=== PATIENT | female | born 2000 | race African-American/Black ===

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

== ENCOUNTER 2023-08-01 10:53 | Outpatient (CLI) | payer BC, SELFPAY ==
[2023-08-02 12:08] LABS: DHEA-Sulfate 237 mcg/dL (44-286); FSH 7.4 mIU/mL; Progesterone 0.5 ng/mL
[2023-08-03 23:39] LABS: Testosterone Total 55 ng/dL (2-45)
[2023-08-04 19:24] LABS: Anti Mullerian Hormone,Female 21.45 ng/mL (1.02-14.63)
[2023-08-09 23:53] LABS: Estradiol, Ultrasensitive 79 pg/mL
== END 2023-08-01 10:54 | disposition home or self-care (01) ==
LOC: ANHLAB 10:54
PROVIDERS: Visit Provider Student in an Organized Health Care Education/Training Program
DX: N91.5 Oligomenorrhea, unspecified (principal)
CPT/HCPCS: 36415; 82627; 82670; 83001; 84144; 84403; 84443

== ENCOUNTER 2023-10-19 12:02 | Outpatient (CLI) | payer BC, SELFPAY ==
[2023-10-19 12:21] LABS: Hematocrit 29.4 % (37.0-47.0); Hemoglobin 9.1 g/dL (12.0-15.0)
== END 2023-10-19 12:03 | disposition home or self-care (01) ==
LOC: ANHLAB 12:04
PROVIDERS: Visit Provider Student in an Organized Health Care Education/Training Program
DX: D64.9 Anemia, unspecified (principal)
CPT/HCPCS: 36415; 85014; 85018

== ENCOUNTER 2023-10-29 10:36 | Outpatient (CLI) | payer BC, SELFPAY | END 2023-10-29 10:37 | disposition home or self-care (01) | LOC: ANHGOSHLAB 10:37 | PROVIDERS: Visit Provider Student in an Organized Health Care Education/Training Program | DX: Z20.2 Contact with and (suspected) exposure to infections with a predominantly sexual mode of transmission (principal) | CPT/HCPCS: 36415; 86695; 86696 ==

== ENCOUNTER 2023-12-05 15:26 | Outpatient (CLI) | payer BC, SELFPAY ==
[2023-12-05 16:15] LABS: Beta HCG Quantitative < 2.39 mIU/ML
== END 2023-12-05 15:27 | disposition home or self-care (01) ==
LOC: ANHLAB 15:27
PROVIDERS: Visit Provider Student in an Organized Health Care Education/Training Program
DX: Z30.9 Encounter for contraceptive management, unspecified (principal)
CPT/HCPCS: 36415; 84702

== ENCOUNTER 2024-06-25 11:19 | Outpatient (CLI) | payer BC, SELFPAY ==
--- OUTSIDE RECORDS SUMMARY | 2024-06-25 12:04 | XMS_ITS | Clinical Summary ---
Author Organization [facility] Address [address] [place] [address] Care Team Providers Care Certified Rehabilitation Counselor Name Role Phone Unavailable Primary Care Provider Unavailabl e Source Comments [facility],non-owned Affiliates and Associated Physician Practices is amultiple site organization consisting of ambulatory clinics and hospital sitesin [place], [place], [place] and [place]. This disclosure is being madepursuant to the Care Everywhere program and may not contain all information available regarding this patient. Last updated 17.[employer] [facility] Allergies No known active allergies Medications * Be aware that medications may not be up to date on this document. Alwaysverify current medications with the patient. 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 Gender Identity Not on file Sexual Orientation Not on file Plan of Treatment Health Maintenance Due Date Last Done Comments PAP SMEAR 2001 HIV SCREENING 2016 HPV VACCINE (1 - 3-dose series) 2016 CHLAMYDIA/GONORRHEA SCREENING 2017 MENINGOCOCCAL (Group B) VACC INE SHARED DECISION-MAKING (1 of 2 - Standard) 2017 HEPATITIS C SCREENING 10/20/2019 DTAP/TDAP/TD VACCINES (1 - Tdap) 2020 HEPATITIS B VACCINE (1 of 3 - 19+ 3-dose series) 2020 COVID-19 VACCINE (1 - 2023-2 5 season) 2023 DEPRESSION SCREENING 02/20/2024 INFLUENZA VACCINE (Season Ended) 2024 ZOSTER VACCINE (1 of 2) 10/25/2051 HIB VACCINE Aged Out No longer eligi ble based on patient's age to complete this topic MENINGOCOCCAL GROUPS A/C/Y/W VACCINE Aged Out No longer eligible b ased on patient's age to complete this topic PNEUMOCOCCAL VACCINE Aged Out No long er eligible based on patient's age to complete this topic
--- OUTSIDE RECORDS SUMMARY | 2024-06-25 12:04 | XMS_ITS | Clinical Summary ---
Author Organization [facility] Address [address] [place] [address] Phone Care Team Providers Care Supervisor Shed Workers Name Role Phone Kumar Whitt MD Primary Care Provider Allergies No known active allergies Medications ondansetron (ZOFRAN) 4 MG Tablet Take 1-2 Tabs by mouth every 8 hours as needed for Nausea - 1st line. 10 Tab 12/31/2019 Active Social History Tobacco Use Types Packs/Day Years Used Date Smoking Tobacco: Never Smokeless Tobacco: Never Alcohol Use Standard Drinks/Week Comments Never 0 (1 standard drink = 0.6 oz pur e alcohol) AUDIT-C Answer Date Recorded Q1: How often do you have a drink containing alc ohol? Never 12/31/2019 Average Number of Drinks Not on file 020 Frequency of Binge Drinking Not on file 12/20 Comments No Sex and Gender Information Value Date Recorded Sex Assigned at Not on file Legal Sex Female 6:06 PM REHABILITATION AIDE/SCHEDULER Gender Identity Not on file Sexual Orientation Not on file Last Filed Vital Signs Vital Sign Reading Time Taken Comments Blood Pressure 113/56 12/31/2019 8:08 PM REHABILITATION AIDE/SCHEDULER Pulse 90 12/31/2019 8:08 PM REHABILITATION AIDE/SCHEDULER Temperature 37.1 C (98.7 F) 12/31/2019 6:09 PM REHABILITATION AIDE/SCHEDULER Respiratory Rate 18 12/31/2019 6:09 PM REHABILITATION AIDE/SCHEDULER Oxygen Saturation 99% 12/31/2019 8:08 PM REHABILITATION AIDE/SCHEDULER Inhaled Oxygen Concentration - - Weight 53.5 kg (118 lb) 12/31/2019 6:09 PM REHABILITATION AIDE/SCHEDULER Height 149.9 cm (4' 11 ) 12/31/2019 6:09 PM REHABILITATION AIDE/SCHEDULER Body Mass Index 23.83 12/31/2019 6:09 PM REHABILITATION AIDE/SCHEDULER Plan of Treatment Health Maintenance Due Date Last Done Comments Hepatitis C Virus (HCV) Screening 2001 Meningococcal B Immunization (2 of 2 - Bexsero SCDM 2-dose series) 05/25/2020 11/25/2019 Pap Smear 2022 Influenza Immunization (#1) 10/21/202307/2019, 01/16/2018, 03/30/2017, Additional history exists SARS-COV-2 Immunization ( season) 2023 03/05/2021, 09/22/2020 Respiratory Syncytial Virus (RSV) Immunization (Adult) (1 - 1-dose 75+ series) 2076 Hepatitis B Immunization Completed 003, 2001, 2001 Pneumococcal Immunization Combined Aged Out 01/29/2003, 08/05/2002, 03/18/2002, Additional history exists No longer eligible based on patient's age to complete this topic Hepatitis A Immunization Discontinued 09/22/2004, 11/19 Measles Mumps Rubella (MMR) Immunization Discontinued 06/20/2006, 11/06/2002 Polio (IPV) Immunization Discontinued 007, 11/06/2002, 03/18/2002, Additional history exists Varicella Immunization Discontinued 06/20/2006, 2002 DTaP/Tdap/Td Immunization Discontinued 2012, 06/20/2006, 01/29/2003, Additional history exists TdaP Immunization Completed 01/14/2013 Human Papillomavirus (HPV) Immunization Completed 09/23/2013, 03/18/2013, 01/14/2013 Meningococcal Immunization (ACWY) Completed 01/16/2018, 01/14/2013 Rotavirus Immunization Aged Out No lo nger eligible based on patient's age to complete this topic Insurance MEDICAID [employer] Care Teams Supervisor Shed Workers Relationship Specialty Start Date End Date Kumar Whitt MD PCP - General Obstetrics & Gynecology 12/31/19
[2024-06-25 13:21] LABS: HIV 1/2 Ab P24 Ag Result Negative (Negative)
[2024-06-25 13:27] LABS: Syphilis IgG/IgM Antibody Negative (Negative)
[2024-06-25 13:31] LABS: Hepatitis B Surface Antigen Negative (Negative)
[2024-06-25 13:37] LABS: HAV RESULT Negative (Negative); Hepatitis B Core IgM Result Negative (Negative)
[2024-06-25 13:49] LABS: Hepatitis C Virus Antibody Negative (Negative)
== END 2024-06-25 11:20 | disposition home or self-care (01) ==
PROVIDERS: Visit Provider Student in an Organized Health Care Education/Training Program
DX: Z20.2 Contact with and (suspected) exposure to infections with a predominantly sexual mode of transmission (principal)
CPT/HCPCS: 36415; 80074; 86593; 86695; 86696; 86703; G0432

== ENCOUNTER 2024-09-05 10:04 | Outpatient (CLI) | payer BC, SELFPAY ==
--- OUTSIDE RECORDS SUMMARY | 2024-09-05 10:06 | XMS_ITS | Clinical Summary ---
Author Organization [facility] Address [address] [place] [address] Phone Care Team Providers Care Medical Accounting Clerk Name Role Phone Kumar Whitt MD Primary [...] on file Legal Sex Female 6:06 PM DIGITAL COMPOSER Gender Identity Not on file Sexual Orientation Not on file Last Filed Vital Signs Vital Sign Reading Time Taken Comments Blood Pressure 113/56 12/31/2019 8:08 PM DIGITAL COMPOSER Pulse 90 12/31/2019 8:08 PM DIGITAL COMPOSER Temperature 37.1 C (98.7 F) 12/31/2019 6:09 PM DIGITAL COMPOSER Respiratory Rate 18 12/31/2019 6:09 PM DIGITAL COMPOSER Oxygen Saturation 99% 12/31/2019 8:08 PM DIGITAL COMPOSER Inhaled Oxygen Concentration - - Weight 53.5 kg (118 lb) 12/31/2019 6:09 PM DIGITAL COMPOSER Height 149.9 cm (4' 11) 12/31/2019 6:09 PM DIGITAL COMPOSER Body Mass Index 23.83 12/31/2019 6:09 PM DIGITAL COMPOSER Plan of Treatment Health Maintenance Due Date [...] Insurance [employer]ID [employer] Care Teams Medical Accounting Clerk Relationship Specialty Start Date End Date Kumar Whitt MD PCP - General Obstetrics & Gynecology 12/31/19
--- OUTSIDE RECORDS SUMMARY | 2024-09-05 10:06 | XMS_ITS | Referral Summary ---
Author Organization [facility] Address [address] [place] [address] Care Team Providers Care Plastic Surgery Assistant Name Role Phone No, Physician Primary Care Provider [phone] Encounters Date Type Department Care Team Description 08/29/2024 Results Follow-Up [facility] [address] [place] [id number] Rubio Xiao RN Iron profile w/ IBC 08/29/2024 1:03 AM CDT - 08/29/2024 3:58 AM CDT Emergency [facility] [address] [place] [address] Ryan Gayle MD Dysfunctional uterine bleeding (Primary Dx); Anemia, unspecified type Discharge Disposition: Discharge to home or self care from Last 3 Months Allergies No known active allergies Social History Tobacco Use Types Packs/Day Years Used Date Smoking Tobacco: Never Assessed Personal Safety Answer Date Recorded Have you ever been in or are you currently in a harmful physical or emotional relationship or is someone making you feel afraid or unsafe? Denies 08/28/2024 Comments Unknown Sex and Gender Information Value Date Recorded Sex Assigned at Not on file Legal Sex Female 7:22 PM [employer] Gender Identity Not on file Sexual Orientation Not on file Last Filed Vital Signs Vital Sign Reading Time Taken Comments Blood Pressure 110/73 08/29/2024 12:19 AM CDT Pulse 94 08/29/2024 12:19 AM CDT Temperature 37 C (98.6 F) 08/29/2024 12:19 AM CDT Respiratory Rate 14 08/29/2024 12:19 AM CDT Oxygen Saturation 99% 08/29/2024 12:19 AM CDT Inhaled Oxygen Concentration - - Weight 59 kg (130 lb) 08/28/2024 10:29 PM CDT Height 149.9 cm (4' 11) 08/28/2024 10:29 PM CDT Body Mass Index 26.26 08/28/2024 10:29 PM CDT Plan of Treatment Not on file Procedures Procedure Name Priority Date/Time Associated Diagnosis Comments RETICULOCYTES Routine 08/29/2024 3:14 AM CDT LACTATE DEHYDROGENASE Routine 08/29/2024 3:14 AM CDT IRON PROFILE W/ IBC Routine 08/29/2024 3 :14 AM CDT HAPTOGLOBIN Routine 08/29/2024 3:14 AM CDT FERRITIN Routine 08/29/2024 3:14 AM CDT RETICULOCYTES STAT 08/29/2024 12:21 AM CDT IRON PROFILE W/ IBC STAT 08/29/2024 1 2:21 AM CDT LACTATE DEHYDROGENASE STAT 08/29/2024 12:21 AM CDT FERRITIN STAT 08/29/2024 12:21 AM CDT HAPTOGLOBIN STAT 08/29/2024 12:21 AM CDT EGFR STAT 08/29/2024 12:21 AM CDT DIFFERENTIAL AUTO STAT 08/29/2024 12: 21 AM CDT LIPASE STAT 08/29/2024 12:21 AM CDT COMPREHENSIVE METABOLIC PANEL STAT 08/29/2024 12:21 AM CDT CBC WITH AUTO DIFFERENTIAL STAT 08/29/2024 12:21 AM CDT POCT HCG, URINE Routine 08/28/2024 10:46 PM CDT URINALYSIS, MICROSCOPIC ONLY STAT 08/28/2024 10:46 PM CDT URINALYSIS AND REFLEX TO MICROSCOPIC STAT 08/28/2024 10:46 PM CDT from Last 3 Months Results * (ABNORMAL) Iron profile w/ IBC (08/29/2024 3:14 AM CDT) [facility] Iron 27(L) 35 - 145 mcg/dL TIBC 384 250 - 400 mcg/dL [facility] Transferrin saturation 7(L) 20 - 50 % [facility] Blood 08/29/2024 3:14 AM CDT 08/29/2024 3:26 AM CDT Cj Phelps MD LAB BLOOD ORDERABLES Final Result Performing Organization Address City/[facility] Co de Phone Number [facility] Department [place] [address] * (ABNORMAL) Reticulocyte Count (08/29/2024 3:14 AM CDT) [facility] Retics, absolute 64 20 - 87 K/cumm Retics 1.3 0.4 - 2.9 % [facility] Reticulocyte Hgb 28.3(L) 30.5 - 38.0 pg [facility] Blood 08/29/2024 3:14 AM CDT 08/29/2024 3:26 AM CDT Cj Phelps MD LAB BLOOD ORDERABLES Final Result Performing Organization Address City/[facility]/ZIP Co de Phone Number [facility] [place] [address] * Lactate dehydrogenase (LD) (08/29/2024 3:14 AM CDT) [facility] Lactate dehydrogenase (LDH) 184 100 - 250 Units/L Blood 08/29/2024 3:14 AM CDT 08/29/2024 3:26 AM CDT Cj Phelps MD LAB BLOOD ORDERABLES Final Result Performing Organization Address City/[facility] Co de Phone Number [facility] [place] [address] * Haptoglobin (08/29/2024 3:14 AM CDT) [facility] Haptoglobin 165.0 30.0 - 200.0 mg/dL Blood 08/29/2024 3:14 AM CDT 08/29/2024 3:26 AM CDT Result [facility] Cj Phelps MD LAB BLOOD ORDERABLES Final Result Performing Organization Address City/[facility] Co de Phone Number [facility] [place] [address] * Ferritin (08/29/2024 3:14 AM CDT) [facility] Ferritin 24 13 - 150 ng/mL Blood 08/29/2024 3:14 AM CDT 08/29/2024 3:26 AM CDT Result [facility] Cj Phelps MD LAB BLOOD ORDERABLES Final Result Performing Organization Address City/[facility] Co de Phone Number [facility] [place] [address] * eGFR (08/29/2024 12:21 AM CDT) [facility] eGFR >90 >=60 mL/min/1. 73 m2 Comment: Interpretive Data Reference Interval Normal >/= 90 mL/min/1.73m2 Mildly decreased* 60 - 89 mL/min/1.73m2 Mildly to moderately decreased 45 - 59 mL/min/1.73m2 Moderately to severely decreased 30 - 44 mL/min/1.73m2 Severely decreased 15 - 29 mL/min/1.73m2 Kidney Failure < 15 mL/min/1.73m2 *Relative to young adult level Estimated glomerular filtration rate is determined by the 2020 CKD-EPI equation recommended by the National Kidney Foundation (A Unifying Approach to GFR Estimation: Recommendations of the NKF-ASK Task Force on Reassessing the Inclusion of Race in Diagnosing Kidney Disease, JASN 2020). The CKD-EPI equation should not be used for patients with unstable renal function and has not been validated in children and those over 70. Current interpretive data was last reviewed 2020. Blood 08/29/2024 12:2 1 AM CDT 08/29/2024 12:43 AM CDT us Ryan Gayle MD LAB BLOOD ORDERABLES Final Re sult [facility] Department [place] [address] * Differential, auto (08/29/2024 12:21 AM CDT) Pathologist [facility] Neutrophil abs 3.87 1.50 - 6.50 K/cumm Imm gran abs 0.02 0.00 - 0.10 K/cumm [facility] Lymphocyte abs 1.93 0.80 - 3.30 K/cumm [facility] Monocyte abs 0.58 0.20 - 0.80 K/cumm [facility] Eosinophil abs 0.19 0.00 - 0.50 K/cumm [facility] Basophil abs 0.02 0.00 - 0.10 K/cumm [facility] Neutrophil pct 58.5 % [facility] Comment: Interpretive Data Percent cell count reference ranges are not reported, since discordance with absolute values may lead to misinterpretation of CBC data. Current Interpretive Data was last revised on 2017. Imm gran pct 0.3 % [facility] Comment: Interpretive Data Percent cell count reference ranges are not reported, since discordance with absolute values may lead to misinterpretation of CBC data. Current Interpretive Data was last revised on 2017. Lymphocyte pct 29.2 % [facility] Comment: Interpretive Data Percent cell count reference ranges are not reported, since discordance with absolute values may lead to misinterpretation of CBC data. Current Interpretive Data was last revised on 2017. Monocyte pct 8.8 % [facility] Comment: Interpretive Data Percent cell count reference ranges are not reported, since discordance with absolute values may lead to misinterpretation of CBC data. Current Interpretive Data was last revised on 2017. Eosinophil pct 2.9 % [facility] Comment: Interpretive Data Percent cell count reference ranges are not reported, since discordance with absolute values may lead to misinterpretation of CBC data. Current Interpretive Data was last revised on 2017. Basophil pct 0.3 % [facility] Comment: Interpretive Data Percent cell count reference ranges are not reported, since discordance with absolute values may lead to misinterpretation of CBC data. Current Interpretive Data was last revised on 2017. Blood 08/29/2024 12:2 1 AM CDT 08/29/2024 12:43 AM CDT us Ryan Gayle MD LAB BLOOD ORDERABLES Final Re sult [facility] Department [place] [address] * Iron profile w/ IBC (08/29/2024 12:21 AM CDT) Iron See comment 35 - 145 mcg/dL Comment:QNS, cannot add on. Notified Dr. Phelps in ED 08/29/2024 02:07 RKM TIBC See comment 250 - 400 mcg/dL [facility] Comment:QNS, cannot add on. Notified Dr. Phelps in ED 08/29/2024 02:07 RKM Transferrin saturation See comment 20 - 50 % [facility] Comment:QNS, cannot add on. Notified Dr. Phelps in ED 08/29/2024 02:07 RKM Blood 08/29/2024 12:2 1 AM CDT 08/29/2024 12:43 AM CDT Ryan Gayle MD LAB BLOOD ORDERABLES Final Re sult Performing Organization Address [facility]/ZIP Co de Phone Number [facility] Department [place] [address] * (ABNORMAL) CBC with auto differential (08/29/2024 12:21 AM CDT) [facility] WBC 6.61 3.80 - 9.90 K/cumm Hgb 11.6(L) 11.9 - 15.5 g/dL [facility] Hct 39.4 35.6 - 45.5 % [facility] Plt 302 150 - 400 K/cumm [facility] MPV 10.1 9.1 - 12.3 fL [facility] RBC 5.03 3.90 - 5.20 M/cumm [facility] MCV 78.3(L) 81.3 - 96.4 fL [facility] MCH 23.1(L) 27.1 - 33.3 pg [facility] MCHC 29.4(L) 32.3 - 35.7 g/dL [facility] RDW CV 20.1(H) 11.1 - 14.9 % [facility] RDW SD 55.5(H) 35.7 - 48.1 fL [facility] NRBC abs 0.00 0.00 - 0.01 K/cumm [facility] Blood Venous blood specimen / Unknown 08/29/2024 12:21 AM CDT 08/29/2024 12:43 AM CDT Ryan Gayle MD LAB BLOOD ORDERABLES Final Re sult [facility] Department [place] [address] * (ABNORMAL) Reticulocyte Count (08/29/2024 12:21 AM CDT) [facility] Retics, absolute 65 20 - 87 K/cumm Retics 1.3 0.4 - 2.9 % [facility] Reticulocyte Hgb 28.9(L) 30.5 - 38.0 pg [facility] Blood 08/29/2024 12:2 1 AM CDT 08/29/2024 12:47 AM CDT Ryan Gayle MD LAB BLOOD ORDERABLES Final Re sult Performing Organization Address [facility] Co de Phone Number [facility] [place] [address] * Lipase (08/29/2024 12:21 AM CDT) Lipase 22 10 - 99 Units/L Blood Venous blood specimen / Unknown 08/29/2024 12:21 AM CDT 08/29/2024 12:43 AM CDT Ryan Gayle MD LAB BLOOD ORDERABLES Final Re sult Performing Organization Address [facility] de Phone Number [facility] [place] [address] * Lactate dehydrogenase (LD) (08/29/2024 12:21 AM CDT) Lactate dehydrogenase (LDH) See comment 100 - 250 Units/L Comment:QNS, cannot add on. Notified Dr. Phelps in ED 08/29/2024 02:07 RKM Blood 08/29/2024 12:2 1 AM CDT 08/29/2024 12:43 AM CDT Ryan Gayle MD LAB BLOOD ORDERABLES Final Re sult Performing Organization Address [facility] Co de Phone Number [facility] [place] [address] * Haptoglobin (08/29/2024 12:21 AM CDT) Haptoglobin See comment 30.0 - 200.0 mg/dL Comment:QNS, cannot add on. Notified Dr. Phelps in ED 08/29/2024 02:07 RKM Blood 08/29/2024 12:2 1 AM CDT 08/29/2024 12:43 AM CDT Ryan Gayle MD LAB BLOOD ORDERABLES Final Re sult Performing Organization Address [facility] Co de Phone Number [facility] Department [place] [address] * Ferritin (08/29/2024 12:21 AM CDT) Pathologist [facility] Ferritin See comment 13 - 150 ng/mL Comment:QNS, cannot add on. Notified Dr. Phelps in ED 08/29/2024 02:07 RKM Blood 08/29/2024 12:2 1 AM CDT 08/29/2024 12:43 AM CDT Ryan Gayle MD LAB BLOOD ORDERABLES Final Re sult Performing Organization Address [facility] de Phone Number [facility] [place] [address] * (ABNORMAL) Comprehensive metabolic panel (08/29/2024 12:21 AM CDT) [facility] Sodium 136 135 - 145 mmol/L Potassium, pl 5.0(H) 3.3 - 4.9 mmol/L [facility] Comment:Hemolyzed; Potassium value may be falsely elevated by as much as 0.6-1.0 mmol/L. Suggest redraw and reanalysis. Chloride 102 97 - 110 mmol/L [facility] CO2 16(L) 22 - 32 mmol/L [facility] Anion gap 18(H) 2 - 15 mmol/L [facility] BUN 12 6 - 25 mg/dL [facility] Creatinine 0.85 0.60 - 1.10 mg/dL [facility] Glucose 89 70 - 199 mg/dL [facility] Comment: Interpretive Data Fasting glucose >/= 126 mg/dl is diagnostic for diabetes. Fasting is defined as no caloric intake for at least 8 hours. Fasting glucose between 100 mg/dl to 125 mg/dl is diagnostic of prediabetes. In a patient with classic symptoms of hyperglycemia or hyperglycemic crisis, a random glucose >/= 200 mg/dl is diagnostic for diabetes. In the absence of unequivocal hyperglycemia, results should be confirmed by repeat testing. The classification and Diagnosis of Diabetes Diabetes Care 2021; 46: S19-S40. Current interpretive data was last revised 2022. Calcium 9.4 8.5 - 10.3 mg/dL [facility] Bilirubin, total <0.2 0.1 - 1.2 mg/dL [facility] Protein, pl 8.4 6.5 - 8.5 g/dL [facility] Albumin 4.0 3.5 - 5.0 g/dL [facility] Alk phos 91 40 - 130 Units/L [facility] ALT 15 7 - 45 Units/L [facility] AST 53(H) 10 - 45 Units/L [facility] Comment:Hemolyzed; result ma y be falsely elevated Blood 08/29/2024 12:2 1 AM CDT 08/29/2024 12:43 AM CDT Ryan Gayle MD LAB BLOOD ORDERABLES Final Re sult [facility] [place] [address] * (ABNORMAL) Urinalysis reflex to microscopic (08/28/2024 10:46 PM CDT) Color, ur Yellow Yellow Clarity, ur Clear Clear [facility] Specific gravity, ur 1.038(H) 1.003 - 1.030 [facility] pH, urine 6.0 [facility] Comment: Interpretive Data U rine pH is affected by diet, medications, systemic acid-base disturbances, and renal tubular function. pH may affect urinary stone formation. For example, urine pH below 6.0 may help reduce the tendency for calcium phosphate stones and pH greater than 6.0 may reduce the tendency for uric acid stone formation. Source: [facility] Current Interpretive Data was last revised on 2017 Protein, ur ql 1+(A) Negative [facility] Glucose, ur ql Negative Negative [facility] Ketones, ur Trace Negative [facility] Bilirubin, ur Negative Negative [facility] Blood, ur Negative Negative [facility] Urobilinogen, ur 2.0(A) <2.0 mg/dL [facility] Nitrite, ur Negative Negative [facility] Leukocyte esterase, ur Negative Negative [facility] UA reflex comment Reflex to microscopic UA will be performed. [facility] Urine 08/28/2024 10:4 6 PM CDT 08/28/2024 10:53 PM CDT Ryan Gayle MD LAB URINE ORDERABLES Final Re sult Performing Organization Address [facility] Co de Phone Number [facility] Department [place] [address] * (ABNORMAL) Urinalysis, microscopic only (08/28/2024 10:46 PM CDT) WBC, ur 0-5 0 - 5 /HPF RBC, ur 0-2 0 - 2 /HPF [facility] Epithelial cells, squamous, ur 1-5 0 - 5 /HPF [facility] Mucous, ur Present(A) [facility] Urine 08/28/2024 10:4 6 PM CDT 08/28/2024 10:53 PM CDT Ryan Gayle MD LAB URINE ORDERABLES Final Re sult [facility] [place] [address] * POCT hCG, urine (08/28/2024 10:46 PM CDT) HCG, ur, POC Negative Negative Lot Number [id number] QC Backgroud Clear Acceptable QC Control Line Acceptable Urine 08/28/2024 10:4 6 PM CDT Ryan Gayle MD POINT OF CARE TEST ORDERABLES Final Result from Last 3 Months Insurance [employer] ACCESS CHOICE [employer] Care Teams Plastic Surgery Assistant Relationship Specialty Start Date End Date No, Physician PCP - General 08/29/24
--- OUTSIDE RECORDS SUMMARY | 2024-09-05 10:06 | XMS_ITS | Clinical Summary ---
Author Organization [facility] Address [address] [place] [address] Care Team Providers Care Vice Provost Name Role Phone No, Physician Primary Care Provider [phone] Allergies No known active allergies Encounters Date Type Department Care Team Description 08/29/2024 1:03 AM CDT - 08/29/2024 3:58 AM CDT Emergency [facility] Emergency Department [address] [place] [address] Ryan Gayle MD Dysfunctional uterine bleeding (Primary Dx); Anemia, unspecified type Discharge Disposition: Discharge to home or self care 08/29/2024 Results Follow-Up [facility] Emergency Department [address] [place] [id number] Rubio Xiao RN Iron profile w/ IBC from Last 3 Months Social History Tobacco Use Types Packs/Day Years [...] on file Legal Sex Female 7:22 PM [employer] Gender Identity Not on file Sexual Orientation [...] 08/28/2024 10:29 PM CDT Plan of Treatment Health Maintenance Due Date Last Done Comments Cervical Cancer Screening 2001 Depression Screening 2001 Hepatitis C Screening 2001 Regular Well Visit/Exam 18-64 10/25/2019 Meningococcal B Vaccine (2 o f 2 - Bexsero SCDM 2-dose series) 05/25/2020 11/25/2019 Covid-19 Vaccine (3 - 2023-2 5 season) 2023 03/05/2021, 09/22/2020 Influenza Vaccine (#1) 2024 , 11/25/2019, 01/16/2018, Additional history exists DTaP/Tdap/Td Vaccine (8 - Td or Tdap) 04/21/2031 04/20/2021, 01/14/2013, 06/20/2006, Additional history exists Hepatitis B Screening Completed 04/29/2002 , 2001, 2001 Pneumococcal vaccine <65 Completed 003, 08/05/2002, 03/18/2002, Additional history exists Varicella Vaccines Completed 06/20/2006, 11/06/2002 HPV Vaccines Completed 09/23/2013, 02/20, 01/14/2013 Procedures Procedure Name Priority Date/Time Associated Diagnosis [...] profile w/ IBC (08/29/2024 3:14 AM CDT) Iron 27(L) 35 - 145 mcg/dL TIBC 384 250 - 400 mcg/dL [facility] Transferrin saturation 7(L) 20 - 50 % [facility] Blood 08/29/2024 3:14 AM CDT 08/29/2024 3:26 AM CDT us Cj Phelps MD LAB BLOOD ORDERABLES Final Result Performing Organization Address [facility] [place] [address] * (ABNORMAL) Reticulocyte Count (08/29/2024 3:14 AM CDT) Retics, absolute 64 20 - 87 K/cumm Retics 1.3 0.4 - 2.9 % [facility] Reticulocyte Hgb 28.3(L) 30.5 - 38.0 pg [facility] Blood 08/29/2024 3:14 AM CDT 08/29/2024 3:26 AM CDT us Cj Phelps MD LAB BLOOD ORDERABLES Final Result Performing Organization Address [facility] [place] [place] [address] * Lactate dehydrogenase (LD) (08/29/2024 3:14 AM CDT) Lactate dehydrogenase (LDH) 184 100 - 250 Units/L Blood 08/29/2024 3:14 AM CDT 08/29/2024 3:26 AM CDT Cj Phelps MD LAB BLOOD ORDERABLES Final Result Performing Organization Address [facility] [place] [address] * Haptoglobin (08/29/2024 3:14 AM CDT) Haptoglobin 165.0 30.0 - 200.0 mg/dL Blood 08/29/2024 3:14 AM CDT 08/29/2024 3:26 AM CDT us Cj Phelps MD LAB BLOOD ORDERABLES Final Result Performing Organization Address [facility] Co de Phone Number CHANDU [facility] Department [place] [address] * Ferritin (08/29/2024 3:14 AM CDT) Ferritin 24 13 - 150 ng/mL Blood 08/29/2024 3:14 AM CDT 08/29/2024 3:26 AM CDT us Cj Phelps MD LAB BLOOD ORDERABLES Final Result Performing Organization Address [facility] de Phone Number CHANDU [facility] [place] [address] * eGFR (08/29/2024 12:21 AM CDT) Pathologist [facility] eGFR >90 >=60 mL/min/1. 73 m2 Comment: [...] ORDERABLES Final Re sult Performing Organization Address [facility] Co de Phone Number CHANDU [facility] [place] [address] * Differential, auto (08/29/2024 12:21 AM CDT) Neutrophil abs 3.87 1.50 - 6.50 K/cumm Imm gran abs 0.02 0.00 - 0.10 K/cumm [facility] Lymphocyte abs 1.93 0.80 - 3.30 K/cumm [facility] Monocyte abs 0.58 0.20 - 0.80 K/cumm [facility] Eosinophil abs 0.19 0.00 - 0.50 K/cumm [facility] Basophil abs 0.02 0.00 - 0.10 K/cumm [facility] Neutrophil pct 58.5 % [facility] Comment: Interpretive Data Percent cell count reference ranges are not reported, since discordance with absolute values may lead to misinterpretation of CBC data. Current Interpretive Data was last revised on 2017. Imm gran pct 0.3 % [facility] Comment: Interpretive Data Percent cell count reference ranges are not reported, since discordance with absolute values may lead to misinterpretation of CBC data. Current Interpretive Data was last revised on 2017. Lymphocyte pct 29.2 % [facility] Comment: Interpretive Data Percent cell count reference ranges are not reported, since discordance with absolute values may lead to misinterpretation of CBC data. Current Interpretive Data was last revised on 2017. Monocyte pct 8.8 % [facility] Comment: Interpretive Data Percent cell count reference ranges are not reported, since discordance with absolute values may lead to misinterpretation of CBC data. Current Interpretive Data was last revised on 2017. Eosinophil pct 2.9 % [facility] Comment: Interpretive Data Percent cell count reference ranges are not reported, since discordance with absolute values may lead to misinterpretation of CBC data. Current Interpretive Data was last revised on 2017. Basophil pct 0.3 % [facility] Comment: Interpretive Data Percent cell count reference ranges are not reported, since discordance with absolute values may lead to misinterpretation of CBC data. Current Interpretive Data was last revised on 2017. Blood 08/29/2024 12:2 1 AM CDT 08/29/2024 12:43 AM CDT Ryan Gayle MD LAB BLOOD ORDERABLES Final Re sult Performing Organization Address [facility]/ZIP Co de Phone Number [facility] [place] [address] * Iron profile w/ IBC (08/29/2024 12:21 AM CDT) [facility] Iron See comment 35 - 145 mcg/dL Comment:QNS, cannot add on. Notified Dr. Phelps in ED 08/29/2024 02:07 RKM TIBC See comment 250 - 400 mcg/dL [facility] Comment:QNS, cannot add on. Notified Dr. Phelps in ED 08/29/2024 02:07 RKM Transferrin saturation See comment 20 - 50 % [facility] Comment:QNS, cannot add on. Notified Dr. Phelps in ED 08/29/2024 02:07 RKM Blood 08/29/2024 12:2 1 AM CDT 08/29/2024 12:43 AM CDT Ryan Gayle MD LAB BLOOD ORDERABLES Final Re sult Performing Organization Address [facility] Co de Phone Number [facility] Department [place] [address] * (ABNORMAL) CBC with auto differential (08/29/2024 12:21 AM CDT) [facility] WBC 6.61 3.80 - 9.90 K/cumm Hgb 11.6(L) 11.9 - 15.5 g/dL [facility] Hct 39.4 35.6 - 45.5 % [facility] Plt 302 150 - 400 K/cumm [facility] MPV 10.1 9.1 - 12.3 fL [facility] RBC 5.03 3.90 - 5.20 M/cumm [facility] MCV 78.3(L) 81.3 - 96.4 fL [facility] MCH 23.1(L) 27.1 - 33.3 pg [facility] MCHC 29.4(L) 32.3 - 35.7 g/dL [facility] RDW CV 20.1(H) 11.1 - 14.9 % [facility] RDW SD 55.5(H) 35.7 - 48.1 fL [facility] NRBC abs 0.00 0.00 - 0.01 K/cumm [facility] Blood Venous blood specimen / Unknown 08/29/2024 12:21 AM CDT 08/29/2024 12:43 AM CDT Ryan Gayle MD LAB BLOOD ORDERABLES Final Re sult Performing Organization Address City/[facility] Co de Phone Number [facility] Department [place] [address] * (ABNORMAL) Reticulocyte Count (08/29/2024 12:21 AM CDT) Retics, absolute 65 20 - 87 K/cumm Retics 1.3 0.4 - 2.9 % [facility] Reticulocyte Hgb 28.9(L) 30.5 - 38.0 pg [facility] Blood 08/29/2024 12:2 1 AM CDT 08/29/2024 12:47 AM CDT Ryan Gayle MD LAB BLOOD ORDERABLES Final Re sult [facility] Department [place] [address] * Lipase (08/29/2024 12:21 AM CDT) Pathologist [facility] Lipase 22 10 - 99 Units/L Blood Venous blood specimen / Unknown 08/29/2024 12:21 AM CDT 08/29/2024 12:43 AM CDT Ryan Gayle MD LAB BLOOD ORDERABLES Final Re sult Performing Organization Address [facility] de [facility] [place] [address] * Lactate dehydrogenase (LD) (08/29/2024 12:21 AM CDT) Lactate dehydrogenase (LDH) See comment 100 - 250 Units/L Comment:QNS, cannot add on. Notified Dr. Phelps in ED 08/29/2024 02:07 RKM Blood 08/29/2024 12:2 1 AM CDT 08/29/2024 12:43 AM CDT Ryan Gayle MD LAB BLOOD ORDERABLES Final Re sult Performing Organization Address [facility] de Phone Number [facility] [place] [address] * Haptoglobin (08/29/2024 12:21 AM CDT) Haptoglobin See comment 30.0 - 200.0 mg/dL Comment:QNS, cannot add on. Notified Dr. Phelps in ED 08/29/2024 02:07 RKM Blood 08/29/2024 12:2 1 AM CDT 08/29/2024 12:43 AM CDT Ryan Gayle MD LAB BLOOD ORDERABLES Final Re sult Performing Organization Address [facility] Co de Phone [facility] [place] [address] * Ferritin (08/29/2024 12:21 AM CDT) Ferritin See comment 13 - 150 ng/mL Comment:QNS, cannot add on. Notified Dr. Phelps in ED 08/29/2024 02:07 RKM Blood 08/29/2024 12:2 1 AM CDT 08/29/2024 12:43 AM CDT us Ryan Gayle MD LAB BLOOD ORDERABLES Final Re sult [facility] [place] [address] * (ABNORMAL) Comprehensive metabolic panel (08/29/2024 12:21 AM CDT) Sodium 136 135 - 145 mmol/L Potassium, pl 5.0(H) 3.3 - 4.9 mmol/L [facility] Comment:Hemolyzed; Potassium value may be falsely elevated by as much as 0.6-1.0 mmol/L. Suggest redraw and reanalysis. Chloride 102 97 - 110 mmol/L [facility] CO2 16(L) 22 - 32 mmol/L [facility] Anion gap 18(H) 2 - 15 mmol/L [facility] BUN 12 6 - 25 mg/dL [facility] Creatinine 0.85 0.60 - 1.10 mg/dL [facility] Glucose 89 70 - 199 mg/dL [facility] Comment: Interpretive Data Fasting glucose >/= [...] 2022. Calcium 9.4 8.5 - 10.3 mg/dL [facility] Bilirubin, total <0.2 0.1 - 1.2 mg/dL [facility] Protein, pl 8.4 6.5 - 8.5 g/dL [facility] Albumin 4.0 3.5 - 5.0 g/dL [facility] Alk phos 91 40 - 130 Units/L [facility] ALT 15 7 - 45 Units/L [facility] AST 53(H) 10 - 45 Units/L [facility] Comment:Hemolyzed; result ma y be falsely elevated Blood 08/29/2024 12:2 1 AM CDT 08/29/2024 12:43 AM CDT Ryan Gayle MD LAB BLOOD ORDERABLES Final Re sult [facility] Department [place] [address] * (ABNORMAL) Urinalysis reflex to microscopic (08/28/2024 10:46 PM CDT) Color, ur Yellow Yellow Clarity, ur Clear Clear [facility] Specific gravity, ur 1.038(H) 1.003 - 1.030 [facility] pH, urine 6.0 [facility] Comment: Interpretive Data U rine pH is affected by diet, medications, systemic acid-base disturbances, and renal tubular function. pH may affect urinary stone formation. For example, urine pH below 6.0 may help reduce the tendency for calcium phosphate stones and pH greater than 6.0 may reduce the tendency for uric acid stone formation. Source: [facility] Current Interpretive Data was last revised on 2017 Protein, ur ql 1+(A) Negative [facility] Glucose, ur ql Negative Negative [facility] Ketones, ur Trace Negative [facility] Bilirubin, ur Negative Negative [facility] Blood, ur Negative Negative [facility] Urobilinogen, ur 2.0(A) <2.0 mg/dL [facility] Nitrite, ur Negative Negative [facility] Leukocyte esterase, ur Negative Negative [facility] UA reflex comment Reflex to microscopic UA will be performed. [facility] Urine 08/28/2024 10:4 6 PM CDT 08/28/2024 10:53 PM CDT us Ryan Gayle MD LAB URINE ORDERABLES Final Re sult [facility] [place] [address] * (ABNORMAL) Urinalysis, microscopic only (08/28/2024 10:46 PM CDT) WBC, ur 0-5 0 - 5 /HPF RBC, ur 0-2 0 - 2 /HPF [facility] Epithelial cells, squamous, ur 1-5 0 - 5 /HPF [facility] Mucous, ur Present(A) [facility] Urine 08/28/2024 10:4 6 PM CDT 08/28/2024 10:53 PM CDT Ryan Gayle MD LAB URINE ORDERABLES Final Re sult [facility] [place] [address] * POCT hCG, urine (08/28/2024 10:46 PM CDT) HCG, ur, POC Negative Negative Lot Number [id number] QC Backgroud Clear Acceptable QC Control Line Acceptable Urine 08/28/2024 10:4 6 PM CDT Ryan Gayle MD POINT OF CARE TEST ORDERABLES Final Result from Last [address] [place] [address] [address] [place] [address] ACCESS CHOICE [facility] ACCESS CHOICE Care Teams Vice Provost Relationship Specialty Start Date End Date No, Physician PCP - General 08/29/24
[2024-09-06 05:08] LABS: HSV 1 IgG, Type Spec Non Reactive (Non Reactive); HSV 2 IgG, Type Spec Non Reactive (Non Reactive)
== END 2024-09-05 10:05 | disposition home or self-care (01) ==
LOC: ANHLAB 10:05
PROVIDERS: Visit Provider Student in an Organized Health Care Education/Training Program
DX: N89.8 Other specified noninflammatory disorders of vagina (principal)
CPT/HCPCS: 86695; 86696